=== PATIENT | male | born 1930 | race Caucasian/White ===

== ENCOUNTER → 2016-12-14 | Outpatient (CLI) | payer OTHER ==
[~2016-12-14] VITALS: Ht 182.9 cm; Wt 96.6 kg
[~2016-12-14] MED LIST: ACCUNEB SO1.25 MG/1; ACETAMINOPHEN650 M5 PO; ADVAIR HFA 1112 UNIT INH; ALBUTEROL2.5 MG/31 INH; ALDACTONE25 MG PO; ALEVE COLD & S1 EACH PO; ALEVE220 M1 PO; ANUSOL-HC25 MG RECTAL; ASPIR 8181 MG PO; ASPIRIN EC325 M1 PO; ASPIRIN EC81 M1 PO; AUGMENTIN 500-1 EACH PO; AZITHROMYCIN 2250 MG PO; BYSTOLIC10 MG PO; CLOPIDOGREL75 MG PO; COLACE100 MG PO; COMBIVENT PO; COUMADIN 2 MG TA2 M1; CRESTOR20 MG PO; DEMADEX20 MG PO; DILTIAZEM 24HR240 M2 PO; DILTIAZEM 24HR240 MG PO; GLUCOPHAGE500 MG PO; HYDROCHLOROTHIA25 M1 PO; LASIX; LISINOPRIL40 MG PO; MULTIVITAMINS PO; MULTIVITAMINS1 EAC7 PO; NITROGLYCERIN0.4 MG SL; NITROQUICK0.4 MG SL; NITROSTAT0.4 M1 SUBLING; PLAVIX 75 MG TA75 M1 PO; PREDNISONE 10 M10 MG PO; PREDNISONE 5 MG5 M1 PO; PROAIR HFA8.5 GM; PROAIR RESPICL90 MCG INH; PROTONIX40 M4 PO; SYMBICORT160 MCG/4. INH
--- NOTE | ~2016-12-14 | CATHLAB ---
[place] [address] [facility] [place] [address] INVASIVE PROCEDURE REPORT Name: BRIANNA BARRERA Room #: REG [facility]#: [id number] Admission: 12/14/16 Attend Phys: Patrice Lo MD Discharge: Date of : 28 Date of Service: 12/14/16 1623 Report #: [id number] THIS REPORT FOR: //name// CC: Placido Lo DATE OF SERVICE: 12/14/2016 INDICATION: Unstable angina. Full risks, benefits and alternatives of cardiac catheterization were explained to the patient. All questions were answered. Informed consent was obtained. The right groin area was prepped and draped in a sterile manner. Lidocaine was given subcutaneously. A 4-Maldivian sheath was inserted into the right femoral artery via modified Seldinger technique. CORONARY ANATOMY: The left main artery is a large caliber vessel, with mild disease. The LAD has a total occlusion in the mid segment. The first diagonal artery is a small caliber vessel with a proximal 70% stenosis. Medical therapy is recommended. There is a stent in the ostial/proximal circumflex with moderate restenosis, 40%. There is a stent in the mid segment of the left circumflex artery, patent with mild restenosis. The first obtuse marginal artery is totally occluded in the proximal segment. The RCA is a dominant vessel with a 100% occlusion in the proximal segment. GRAFTS: There is a patent WEST graft to the mid LAD with no flow limiting lesions and ANDREA 3 blood flow down into the distal LAD. There is a patent vein graft with an end-to-side anastomosis to the distal RCA. There were no obstructive lesions within the vein graft. After the anastomosis, there is a small PDA that has severe diffuse disease. This is unchanged from prior procedures and medical therapy is recommended. There is a moderate size RPL branch, with no flow-limiting lesions. There is a patent vein graft to the first obtuse marginal artery. There is a stent within the proximal segment of the vein graft, patent with minimal restenosis. There is mild disease within the distal segment of the vein graft. The LVEDP is approximately 24 mmHg. There is no gradient across the outflow [facility] [address] [place] [address] INVASIVE PROCEDURE REPORT Name: BRIANNA BARRERA Davonte Room #: REG [facility]#: [id number] Admission: 12/14/16 Attend Phys: Patrice Lo MD Discharge: Date of : 28 Date of Service: 12/14/16 1623 Report #: [id number] tract. A ventriculogram was not performed in view of an elevated creatinine level. IMPRESSION: 1. Patent WEST to the LAD. 2. Patent vein graft to the first obtuse marginal artery. 3. Patent vein graft to the distal RCA. 4. Patent left circumflex stent with moderate restenosis. 5. Severe disease in small caliber vessels including the first diagonal artery and PDA, recommend medical therapy. <ELECTRONICALLY SIGNED> By: Patrice Lo MD 12/15/16 0815 1623 0350 Patrice Lo MD /nt
[2016-12-14 08:41] VITALS: BP 146/57
[2016-12-14 08:55] LABS: CALCIUM 9.5 mg/dL (8.5-10.1); CREATININE 1.8 mg/dL (0.7-1.3); POTASSIUM 4.8 mmol/L (3.5-5.1)
[2016-12-14 11:44] LABS: URINE BILIRUBIN NEGATIVE (Negative); URINE BLOOD NEGATIVE (Negative); URINE COLOR YELLOW; URINE GLUCOSE-RANDOM* NEGATIVE (Negative); URINE KETONES NEGATIVE (Negative); URINE NITRITE NEGATIVE (Negative); URINE PROTEIN (DIPSTICK) NEGATIVE (Negative); URINE UROBILINOGEN 0.2 E.U./dl (0.2-1.0)
[2016-12-14 15:06] LABS: URINE CREATININE-RANDOM* 82.3 mg/dL (Not Estab.); URINE PROTEIN-RANDOM* 7.6 mg/dL (Not Estab.)
== END ==
LOC: CATH 08:05 → CV 09:48
PROVIDERS: Internal Medicine Cardiovascular Disease
DX: I20.0 Unstable angina (principal); D64.9 Anemia, unspecified; J44.9 Chronic obstructive pulmonary disease, unspecified; E78.5 Hyperlipidemia, unspecified; I25.10 Atherosclerotic heart disease of native coronary artery without angina pectoris; I12.9 Hypertensive chronic kidney disease with stage 1 through stage 4 chronic kidney disease, or unspecified chronic kidney disease; E11.22 Type 2 diabetes mellitus with diabetic chronic kidney disease; N18.3 Chronic kidney disease, stage 3 (moderate); I50.32 Chronic diastolic (congestive) heart failure; I48.91 Unspecified atrial fibrillation; I25.2 Old myocardial infarction; Z95.1 Presence of aortocoronary bypass graft; Z95.818 Presence of other cardiac implants and grafts; Z87.01 Personal history of pneumonia (recurrent)

== ENCOUNTER 2017-01-10 10:14 | Inpatient (IN) | payer OTHER ==
[~2017-01-10] VITALS: Ht 182.9 cm; Wt 100.2 kg
--- NOTE | ~2017-01-10 | EKG ---
[address] [address] ELECTROCARDIOGRAM REPORT Name: BRIANNA BARRERA Room #: 302-P ADM IN M.R.#: [id number] Admission: 01/10/17 Attend Phys: Dinesh Adams MD Discharge: Date of : 28 Report #: [id number] THIS REPORT FOR: //name// [facility] ED Test Date: 2017-01-10 Test Time: 11:24:00 Pat Name: BRIANNA BARRERA Department: Room: 302 Gender: M Analysis Intern: Sheila Boyd : 1930 Requested By: Mee Tovar Order Number: [id number] MD: Des Stearns Measurements Intervals [place] Rate: 63 P: [place]: QRS: -64 QRSD: 132 T: 70 QT: 463 QTc: 475 Interpretive Statements Atrial flutter with predominant 4:1 AV block RBBB and LAFB Nonspecific T abnormalities, lateral leads Compared to ECG 04/06/2016 08:03:46 Left anterior fascicular block now present Right bundle-branch block now present T-wave abnormality now present Intraventricular conduction delay no longer present Electronically Signed On 01-11-2017 12:48:31 CDT by Des Stearns [email or web address] <ELECTRONICALLY SIGNED> By: Des Stearns MD 01/11/17 1248 1124 1124 Des Stearns MD /EPI
--- NOTE | ~2017-01-10 | H ---
[facility] [place] [address] HISTORY AND PHYSICAL Name: BRIANNA BARRERA Davonte Room #: 302-P [facility] IN .R.#: [id number] Admission: 01/10/17 Attend Phys: Dinesh Adams MD Discharge: 01/11/17 Date of : 28 Report #: [id number] THIS REPORT FOR: //name// CC: Dinesh Smyth DATE OF SERVICE: 01/10/2017 REASON FOR ADMISSION: Dyspnea and hypoxia. HISTORY OF PRESENT ILLNESS: The patient is a pleasant 86-year-old gentleman, admitted to the hospital today because of some ongoing dyspnea and hypoxia. He has been suffering from the same ongoing for a substantial period of time. He reports that he used to be on a daily diuretic, which was discontinued because of renal failure and hematuria and he now only takes Lasix on an as needed basis for lower extremity edema. He has not really had significant wheezing, fevers, productive sputum, chest pain, or other problems. 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 He is otherwise comfortable and describes no other problems. PAST MEDICAL HISTORY: Includes: 1. Bypass surgery in 1996. 2. Hypertension. 3. Cholecystectomy. 4. COPD. 5. Diabetes. 6. Hyperlipidemia. 7. Coronary stents in November 2012, with recent unremarkable coronary catheterization. 8. Hemorrhoids with colonoscopy. 9. GI bleed. 10. Carotid stenosis. 11. Paroxysmal atrial fibrillation, not on anticoagulation with bleed risk. 12. Chronic kidney disease 3. 13. Diastolic CHF. 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 MEDICATIONS: Refer to reconciliation note. ALLERGIES: Reported to MARÍA. SOCIAL HISTORY: Past smoker, now quit. No alcohol or drug use reported. [facility] [address] [place] [address] HISTORY AND PHYSICAL Name: BRIANNA BARRERA Davonte Room #: 302-P [facility]#: [id number] Admission: 01/10/17 Attend Phys: Dinesh Adams MD Discharge: 01/11/17 Date of : 28 Report #: [id number] REVIEW OF SYSTEMS: Twelve-point review of systems performed, negative except as mentioned in history of present illness. PHYSICAL EXAMINATION: VITAL SIGNS: The patient is afebrile, pulse 61, respiratory rate 20, O2 sat is 97 on 3 liters, and blood pressure 148/55. GENERAL: Elderly gentleman, in no acute distress. HEENT: Unremarkable. NECK: No JVD or thyromegaly. CARDIOVASCULAR: S1, S2 present, regular. RESPIRATOR: Air entry present bilaterally. No significant wheezes, rhonchi, or rales. ABDOMEN: Soft, nontender, and nondistended. EXTREMITIES: With trace edema to 1+ edema bilaterally. NEUROLOGIC: Awake and alert. No gross focal findings. SKIN: Unremarkable, no rash or lesions. LABS AND INVESTIGATIONS: BUN and creatinine elevated at 41 and 2.0, close to his baseline. BNP minimally elevated at 720. ABG is unremarkable except for mild hypoxia of 89. CBC with mild leukocytosis of 11.5. 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 V/Q scan intermediate probability for PE. ASSESSMENT AND PLAN: This is an 86-year-old gentleman presented with dyspnea and hypoxia. 1. Hypoxia and dyspnea. I suspect this is likely related to chronic lung disease with probable underlying pulmonary fibrosis/emphysematous changes. At the present time, I do not feel he has any severe acute abnormalities. He may have component of volume, especially in light of lower extremity edema and not taking diuretics on a scheduled basis. We will attempt one dose of diuresis; however, suspect he only will require to be set up for oxygen at the time of discharge. I do not feel any antibiotics or other treatment are indicated. His pretest probability for PE is low and is in any case contraindicated in this patient. 2. Chronic atrial fibrillation, not on anticoagulation with history of gastrointestinal bleeding. 3. Coronary artery disease, stable. 4. Deep venous thrombosis prophylaxis only with SCDs. 5. The patient will be monitored closely. He reports that he is a do not resuscitate. I have discussed this in presence of his family who were also present at bedside. <ELECTRONICALLY SIGNED> By: Dinesh Adams MD 01/11/17 1652 1440 1523 Dinseh Adams MD /nt
[2017-01-10 10:14] VITALS: BP 174/74
[2017-01-10 11:54] LABS: ABG SAMPLE TYPE ARTERIAL; BE(vivo) -0.9 mmol/L (-2 to +3); HCO3 24.6 mmol/L (22.0-26.0); O2(CT) 15.8 mL/dL (15.0-23.0); O2Hb 95.3 % (92.0-98.0); PCO2 44.3 mmHg (35.0-45.0); PO2 89.3 mmHg (80.0-100.0); pH 7.363 (7.360-7.450); sO2 96.5 % (92.0-98.0)
[2017-01-10 11:55] LABS: HEMATOCRIT 33.4 % (42.0-52.0); HEMOGLOBIN 10.8 gm/dL (14.0-18.0); MANUAL DIFF YES; MCH 28.2 pg (26.0-34.0); MCHC 32.3 g/dL (28.0-37.0); MCV 87.4 fL (80.0-100.0); PLATELET COUNT 242 thou/uL (150-400); RBC 3.82 mil/uL (4.50-6.00); RDW 15.3 % (10.5-14.5); WBC 11.5 thou/uL (4.0-11.0)
[2017-01-10 11:55] LABS: STICK SITE RA
[2017-01-10 12:03] LABS: CALCIUM 9.2 mg/dL (8.5-10.1); POTASSIUM 4.7 mmol/L (3.5-5.1)
[2017-01-10 12:29] LABS: ABSOLUTE NEUTROPHILS 9.8 thou/uL (1.4-8.2); PLATELET ESTIMATE NORMAL; TOTAL CELL COUNT 100
[2017-01-10 14:13] VITALS: BP 148/55
[2017-01-10 19:30] VITALS: BP 157/58
[2017-01-11 03:30] VITALS: BP 146/57
[2017-01-11 08:00] VITALS: BP 172/74
[2017-01-11] MEDS ORDERED: LASIX 40 MG TAB40 M2 PO (09:49)
[2017-01-11 11:08] VITALS: BP 172/74
[2017-01-11 13:53] VITALS: BP 172/74
[2017-01-11 14:14] VITALS: BP 172/74
== END 2017-01-11 15:27 | disposition home health service (06) | DRG 191 ==
LOC: ER 10:14 → EROBS 13:02 → 3N 13:02
PROVIDERS: Emergency Medicine
DX: J44.1 Chronic obstructive pulmonary disease with (acute) exacerbation (principal); I13.0 Hypertensive heart and chronic kidney disease with heart failure and stage 1 through stage 4 chronic kidney disease, or unspecified chronic kidney disease; I50.30 Unspecified diastolic (congestive) heart failure; R09.02 Hypoxemia; I48.2 Chronic atrial fibrillation; E11.22 Type 2 diabetes mellitus with diabetic chronic kidney disease; E78.5 Hyperlipidemia, unspecified; I25.10 Atherosclerotic heart disease of native coronary artery without angina pectoris; N18.3 Chronic kidney disease, stage 3 (moderate); Z87.01 Personal history of pneumonia (recurrent); Z95.1 Presence of aortocoronary bypass graft; Z90.49 Acquired absence of other specified parts of digestive tract; Z95.5 Presence of coronary angioplasty implant and graft; Z79.82 Long term (current) use of aspirin; Z79.899 Other long term (current) drug therapy; Z87.891 Personal history of nicotine dependence; Z88.8 Allergy status to other drugs, medicaments and biological substances
CPT/HCPCS: 10096